=== PATIENT | male | born 1965 | race American Indian/Alaskan Native ===

== ENCOUNTER 2017-05-19 17:45 | Emergency (ER) | payer MEDICAID ==
[2017-05-19] MEDS ORDERED: ZESTRIL PO ONE (21:42)
[2017-05-19] MEDS ORDERED: LOPRESSOR PO ONE (21:48)
--- NOTE | 2017-05-19 21:48 | Emergency Department Report ---
ED Recheck HPI - General Chief Complaint: Extremity Problem,Nontraumatic Stated Complaint: FOOT PAIN SWOLLEN Time Seen by Provider: 05/19/17 21:32 Source: patient, EMS Mode of arrival: Wheelchair Limitations: Physical Limitation - History of Present Illness Initial Comments: This is a 51-year-old male nontoxic, well nourished in appearance, no acute signs of distress presents to the ED with request for mediation refill. Patient stated he has been seen in the [facility] for bilateral leg and feet swelling 2 months ago and have been prescribed Atorvastin, Ergocalciferol, Toresmide, Metoprolol, ASA, and Lipitor. Patient stated he ran out of all his medications and stated he is scared that his feet will again start to swell and hurt. Patient currently in the ED denies any leg or feet swelling. Patient denies any symptoms. Denies any chest pain, shortness of breathe, fever, chills , headache, n/v, or swelling. Denies any allergies. PMH includes hypertension. Patient denies having a PCP because he was never referred. MD Complaint: medication refill request Returns Today for: request for prescription Symptoms Since Prior Visit: no new symptoms Associated Symptoms: none. denies: fever, chills, chest pain, shortness of breath, rash, malaise, nasuea, abdominal pain - Related Data Home Medications Medication Instructions Recorded Confirmed Last Taken Aspirin 81 mg PO DAILY 05/19/17 05/19/17 Unknown Atorvastatin Calcium [Lipitor] 40 mg PO DAILY 05/19/17 05/19/17 Unknown Ergocalciferol [Vitamin D2] 1 cap PO QWEEK 05/19/17 05/19/17 Unknown Finasteride [Proscar] 5 mg PO DAILY 05/19/17 05/19/17 Unknown Lisinopril [Prinivil] 10 mg PO DAILY 05/19/17 05/19/17 Unknown Metoprolol Xl [Metoprolol 25 mg PO QDAY 05/19/17 05/19/17 Unknown SUCCINATE ER TAB] Torsemide [Demadex] 10 mg PO QDAY 05/19/17 05/19/17 Unknown Previous Rx's Medication Instructions Recorded Last Taken Type Aspirin [Aspirin EC] 81 mg PO DAILY #30 tablet 05/19/17 Unknown Rx Atorvastatin [Lipitor] 40 mg PO QHS #30 tab 05/19/17 Unknown Rx Ergocalciferol [Vitamin D2] 1 cap PO QWEEK #4 capsule 05/19/17 Unknown Rx Finasteride [Proscar] 5 mg PO QDAY #30 tablet 05/19/17 Unknown Rx Lisinopril [Zestril] 10 mg PO DAILY #30 tablet 05/19/17 Unknown Rx Metoprolol [Lopressor TAB] 25 mg PO DAILY #30 tablet 05/19/17 Unknown Rx Torsemide [Demadex] 20 mg PO DAILY #30 tablet 05/19/17 Unknown Rx Allergies Allergy/AdvReac Type Severity Reaction Status Date / Time No Known Allergies Allergy Verified 05/19/17 18:53 ED Review of Systems ROS: Stated complaint: FOOT PAIN SWOLLEN Other details as noted in HPI Constitutional: denies: chills, fever Eyes: denies: eye pain, eye discharge, vision change ENT: denies: ear pain, throat pain Respiratory: denies: cough, shortness of breath, wheezing Cardiovascular: denies: chest pain, palpitations Endocrine: no symptoms reported Gastrointestinal: denies: abdominal pain, nausea, diarrhea Genitourinary: denies: urgency, dysuria Musculoskeletal: denies: back pain, joint swelling, arthralgia Skin: denies: rash, lesions Neurological: denies: headache, weakness, paresthesias Psychiatric: denies: anxiety, depression Hematological/Lymphatic: denies: easy bleeding, easy bruising ED Past Medical Hx - Past Medical History Previous Medical History?: Yes Hx Hypertension: Yes Additional medical history: prostate CA - Surgical History Past Surgical History?: No - Social History Smoking Status: Never Smoker Substance Use Type: None - Medications Home Medications: Home Medications Medication Instructions Recorded Confirmed Last Taken Type Aspirin 81 mg PO DAILY 05/19/17 05/19/17 Unknown History Aspirin [Aspirin EC] 81 mg PO DAILY #30 tablet. 05/19/17 Unknown Rx Atorvastatin Calcium [Lipitor] 40 mg PO DAILY 05/19/17 05/19/17 Unknown History Atorvastatin [Lipitor] 40 mg PO QHS #30 tab 05/19/17 Unknown Rx Ergocalciferol [Vitamin D2] 1 cap PO QWEEK 05/19/17 05/19/17 Unknown History Ergocalciferol [Vitamin D2] 1 cap PO QWEEK #4 capsule 05/19/17 Unknown Rx Finasteride [Proscar] 5 mg PO DAILY 05/19/17 05/19/17 Unknown History Finasteride [Proscar] 5 mg PO QDAY #30 tablet 05/19/17 Unknown Rx Lisinopril [Prinivil] 10 mg PO DAILY 05/19/17 05/19/17 Unknown History Lisinopril [Zestril] 10 mg PO DAILY #30 tablet 05/19/17 Unknown Rx Metoprolol Xl [Metoprolol 25 mg PO QDAY 05/19/17 05/19/17 Unknown History SUCCINATE ER TAB] Metoprolol [Lopressor TAB] 25 mg PO DAILY #30 tablet 05/19/17 Unknown Rx Torsemide [Demadex] 10 mg PO QDAY 05/19/17 05/19/17 Unknown History Torsemide [Demadex] 20 mg PO DAILY #30 tablet 05/19/17 Unknown Rx ED Physical Exam - General Limitations: Physical Limitation General appearance: alert, in no apparent distress - Head Head exam: Present: atraumatic, normocephalic, normal inspection - Eye Eye exam: Present: normal appearance, PERRL, EOMI. Absent: scleral icterus, conjunctival injection, nystagmus, periorbital swelling, periorbital tenderness - ENT ENT exam: Present: normal exam, normal orophraynx, mucous membranes moist, TM's normal bilaterally, normal external ear exam - Neck Neck exam: Present: normal inspection, full ROM. Absent: tenderness, meningismus, lymphadenopathy, thyromegaly - Respiratory Respiratory exam: Present: normal lung sounds bilaterally. Absent: respiratory distress, wheezes, rales, rhonchi, stridor, chest wall tenderness, accessory muscle use, decreased breath sounds, prolonged expiratory - Cardiovascular Cardiovascular Exam: Present: regular rate, normal rhythm, normal heart sounds. Absent: bradycardia, tachycardia, irregular rhythm, systolic murmur, diastolic murmur, rubs, gallop - GI/Abdominal GI/Abdominal exam: Present: soft, normal bowel sounds. Absent: distended, tenderness, guarding, rebound, rigid, diminished bowel sounds - Rectal Rectal exam: Present: deferred - Extremities Exam Extremities exam: Present: normal inspection, full ROM, normal capillary refill. Absent: tenderness, pedal edema, joint swelling, calf tenderness - Back Exam Back exam: Present: normal inspection, full ROM. Absent: tenderness, CVA tenderness (R), CVA tenderness (L), muscle spasm, paraspinal tenderness, vertebral tenderness, rash noted - Neurological Exam Neurological exam: Present: alert, oriented X3, CN II-XII intact, normal gait, reflexes normal - Psychiatric Psychiatric exam: Present: normal affect, normal mood - Skin Skin exam: Present: warm, dry, intact, normal color. Absent: rash ED Course Vital Signs 05/19/17 18:54 Temperature 99.4 F Pulse Rate 80 Respiratory 18 Rate Blood Pressure 180/102 O2 Sat by Pulse 97 Oximetry - Reevaluation(s) Reevaluation #1: 05/19/17 21:53 Patient is speaking in full sentences with no signs of distress noted. ED Recheck MDM - Medical Decision Making 51-year-old male that presents with medication refill. There is no current symptoms or signs of any swelling or any abnormalities. Patient is asymptomatic. He did receive lisinopril and Metroprolol in the ED bc of eleveated b/p because patient missed dose. Patient is stable. All of the medications has been prescribed to patient. Patient was also referred to a primary care doctor. Patient was instructed to follow-up with a primary care doctor in 3-5 days or if symptoms worsen and continue return to emergency room as soon as possible possible. Patient is hemodynamically stable with stable vital signs. At time time of discharge, the patient does not seem toxic or ill in appearance. No acute signs of distress noted. Patient agrees to discharge treatment plan of care. No further questions noted by the patient. Critical care attestation.: If time is entered above; I have spent that time in minutes in the direct care of this critically ill patient, excluding procedure time. ED Disposition Clinical Impression: Medication refill Hypertension Qualifiers: Hypertension type: unspecified Qualified Code(s): I10 - Essential (primary) hypertension Disposition: DC- TO HOME OR SELFCARE Is pt being admited?: No Does the pt Need Aspirin: No Condition: Stable Instructions: Hypertension (ED) Additional Instructions: Follow-up with a primary care doctor in 3-5 days or if symptoms worsen and continue return to emergency room as soon as possible possible. Prescriptions: Atorvastatin [Lipitor] 40 mg PO QHS #30 tab Aspirin [Aspirin EC] 81 mg PO DAILY #30 tablet. Ergocalciferol [Vitamin D2] 1 cap PO QWEEK #4 capsule Finasteride [Proscar] 5 mg PO QDAY #30 tablet Lisinopril [Zestril] 10 mg PO DAILY #30 tablet Metoprolol [Lopressor TAB] 25 mg PO DAILY #30 tablet Torsemide [Demadex] 20 mg PO DAILY #30 tablet Referrals: PRIMARY CARE, [Primary Care Provider] - 3-5 Days LATASHA WATSON MD [Staff Physician] - 3-5 Days JEAN HUFF MD [Staff Physician] - 3-5 Days [facility] [Outside] - 3-5 Days [facility] [Outside] - 3-5 Days Forms: Work/School Release Form(ED)
[2017-05-19] MEDS ORDERED: LOPRESSOR ONE (22:16)
[2017-05-19 23:18] VITALS: BP 174/103
== END 2017-05-19 23:18 | disposition home or self-care (01) ==
LOC: ED 17:45
DX: Z76.0 Encounter for issue of repeat prescription (principal); I10 Essential (primary) hypertension